=== PATIENT | female | born 1960 | race Caucasian/White ===

== ENCOUNTER 2017-12-10 11:21 | Observation (INO) | payer OTHER ==
--- NOTE | 2017-12-10 11:30 | CPEKG ---
Heart Rate: 84 RR Interval: 714 P-R Interval: 160 QRSD Interval: 76 QT Interval: 376 QTC Interval: 445 P [place]: 46 QRS [place]: 74 T Wave [place]: 59 EKG Severity - NORMAL ECG - EKG Impression: SINUS RHYTHM Electronically Signed By: Wolfgang Jones 10-Dec-2017 14:58:58
--- NOTE | 2017-12-10 11:49 | EDPHY ---
H & P Stated Complaint: CP since 4am. Time Seen by Provider: 12/10/17 11:49 - Personal History Current Tetanus Diphtheria and Acellular Pertussis (TDAP): Yes - Medical/Surgical History Hx Asthma: Yes Hx Chronic Respiratory Disease: No Hx Diabetes: No Hx Cardiac Disease: No Hx Renal Disease: No Hx Cirrhosis: No Hx Alcoholism: No Hx HIV/AIDS: No Hx Splenectomy or Spleen Trauma: No Other PMH: Asthma. Spinal stenosis. - Social History Smoking Status: Current every day smoker Constitutional: Initial Vital Signs Temperature (C) 37.1 C 12/10/17 11:24 Heart Rate 91 12/10/17 11:24 Respiratory Rate 16 12/10/17 11:24 Blood Pressure 112/72 12/10/17 11:24 O2 Sat (%) 94 12/10/17 11:24 O2 Delivery Mode Room Air Allergies/Adverse Reactions: codeine Allergy (Verified 01/31/14 16:47) Penicillins Allergy (Verified 01/31/14 16:48) Home Medications: Medication Instructions Recorded Advair 100/50 (*) 12/10/17 Medical Decision Making - Diagnostics Imaging Results: Imaging Impressions Chest X-Ray 12/10/17 12:04 Impression: Airways disease/COPD. ED Course/Re-evaluation: CHIEF COMPLAINT: Chest pain HISTORY OF PRESENT ILLNESS: This patient is a 56 year old female complaining of chest pain. Her symptoms began this morning at 4am, waking her from sleep. The discomfort is in the middle of her chest and feels like a pressure sensation, pushing on her chest. This is not sharp or stabbing, and does not radiate anywhere else. She denies any known provocation or palliation. She has never had similar symptoms in the past. Her mother had history of "heart problems", the patient is not sure what these were. She endorses shortness of breath. She endorses some paresthesias in her left hand. No nausea, vomiting, lightheadedness, weakness, or other associated symptoms. REVIEW OF SYSTEMS: A 10 point review of systems was performed and is negative with the exception of the elements mentioned in the history of present illness. PHYSICAL EXAM: HR, BP, O2 Sat, RR. Temp noted General Appearance: Alert, well hydrated, appropriate, and non-toxic appearing. Head: Atraumatic without scalp tenderness or obvious injury Eyes: Pupils equal, round, reactive to light and accommodation, EOMI, no trauma , no injection. Ears: Clear bilaterally, no perforation, normal landmarks Nose: Atraumatic, no rhinorrhea, clear. Throat: There is no erythema or exudates, no lesions, normal tonsils, mucus membranes moist. Neck: Supple, 2+ carotid upstroke, nontender, no lymphadenopathy. Respiratory: No retractions, no distress, no wheezes, and no accessory muscle use. Lungs are clear to auscultation bilaterally. Cardiovascular: Regular rate and rhythm, no murmurs, rubs, or gallops. Bilateral carotid, radial, dorsalis pedis, and posterior tibial pulses intact. Good capillary refill all extremities. Gastrointestinal: Abdomen is soft, nontender, non-distended, no masses, no rebound, no guarding, no peritoneal signs. Musculoskeletal: Normal active ROM of all extremities, atraumatic. Neurological: Alert, appropriate, and interactive. The patient has normal DTRs and non-focal cranial nerves, motor, sensory, and cerebellar exam. Skin: No rashes, good turgor, no nodules on palpation. Past medical history: Asthma, Spinal stenosis. Past surgical history: Noncontributory. Family history: Noncontributory. Social history: Nonsmoker. Live in [place]. Employed. PCP Dr. Fierro. DIAGNOSTICS/PROCEDURES/CRITICAL CARE TIME: The 12 lead EKG was interpreted by myself. See hard copy and/or "tracemaster" electronic copy for interpretation. T-wave inversion in V2. DIFFERENTIAL DIAGNOSIS: The differential diagnosis for the patient's chest pain included but was not limited to myocardial ischemia, pulmonary embolus, chest wall pain, pleural inflammation, and pulmonary infectious causes. MEDICAL DECISION MAKIN57 y/o female presents with chest pain onset this morning at 4:00am. Exam unremarkable. Stat EKG at bedside shows sinus rhythm, T-wave inversion in V2 and poor R wave progression. Plan for chest x-ray, labs including CBC, chemistries, troponin, D-dimer, BNP. Administered 325mg PO aspirin. 12:40 Troponin negative. 12:26 Reassessed patient. Her chest pain is ongoing. Plan to admit for further evaluation. Plan to administer 1" nitro paste. 13:28 Spoke with hospitalist service. Dr. Taylor accepts admission for chest pain. 12:[address] Puga, chemistry associate. She will consult the patient. - Data Points Laboratory Results: Laboratory Results 12/10/17 11:25 12/10/17 11:25 12/10/17 12/10/17 12/10/17 11:25 11:25 11:25 WBC 11.16 10^3/uL H 10^3/uL (3.80-9.50) RBC 5.31 10^6/uL 10^6/uL (4.18-5.33) Hgb 16.5 g/dL H g/dL (12.6-16.3) Hct 48.5 % H % (38.0-47.0) MCV 91.3 fL fL (81.5-99.8) MCH 31.1 pg pg (27.9-34.1) MCHC 34.0 g/dL g/dL (32.4-36.7) RDW 13.4 % % (11.5-15.2) Plt Count 265 10^3/uL 10^3/uL (150-400) MPV 10.1 fL fL (8.7-11.7) Neut % (Auto) 81.7 % H % (39.3-74.2) Lymph % (Auto) 11.4 % L % (15.0-45.0) [place] % (Auto) 5.3 % % (4.5-13.0) Eos % (Auto) 1.0 % % (0.6-7.6) Baso % (Auto) 0.3 % % (0.3-1.7) Nucleat RBC Rel Count 0.0 % % (0.0-0.2) Absolute Neuts (auto) 9.13 10^3/uL H 10^3/uL (1.70-6.50) Absolute Lymphs (auto) 1.27 10^3/uL 10^3/uL (1.00-3.00) Absolute Monos (auto) 0.59 10^3/uL 10^3/uL (0.30-0.80) Absolute Eos (auto) 0.11 10^3/uL 10^3/uL (0.03-0.40) Absolute Basos (auto) 0.03 10^3/uL 10^3/uL (0.02-0.10) Absolute Nucleated RBC 0.00 10^3/uL 10^3/uL (0-0.01) Immature Gran % 0.3 % % (0.0-1.1) Immature Gran # 0.03 10^3/uL 10^3/uL (0.00-0.10) D-Dimer 0.32 ug/mLFEU ug/mLFEU (0.00-0.50) Sodium 138 mEq/L mEq/L (135-145) Potassium 4.4 mEq/L mEq/L (3.5-5.2) Chloride 100 mEq/L mEq/L (97-110) Carbon Dioxide 22 mEq/l mEq/l (22-31) Anion Gap 16 mEq/L mEq/L (8-16) BUN 16 mg/dL mg/dL (7-23) Creatinine 0.9 mg/dL mg/dL (0.6-1.0) Estimated GFR > 60 Glucose 128 mg/dL H mg/dL (70-100) Calcium 9.7 mg/dL mg/dL (8.5-10.4) Troponin I < 0.012 ng/mL ng/mL (0.000-0.034) NT-Pro-B Natriuret Pep 87 pg/mL pg/mL (0-125) Medications Given: Discontinued Medications Aspirin (Aspirin) 324 mg PO EDNOW ONE Stop: 12/10/17 12:04 Last Admin: 12/10/17 13:00 Dose: Not Given Departure - Departure Disposition: [facility] Inpatient Acute Clinical Impression: Chest pain Qualifiers: Chest pain type: other chest pain Qualified Code(s): R07.89 - Other chest pain ; R07.8 - Other chest pain Condition: Fair Report Scribed for: Wolfgang Jones Report Scribed by: Annelise Nieto Date of Report: 12/10/17 Time of Report: 13:36
[2017-12-10] MEDS ORDERED: ASPIRIN 81 MG CHEWABLE TAB PO ONE (12:03)
[2017-12-10 12:21] LABS: PLATELET COUNT 265 10^3/uL (150-400)
[2017-12-10] MEDS ORDERED: NITROGLYCERIN 2% 1 GM PACKET TP ONE (13:26)
[2017-12-10] MEDS ORDERED: ONDANSETRON DISINTEGRATING 4 MG TAB PO PRN (14:31)
[2017-12-10] MEDS ORDERED: ONDANSETRON 4 MG/2 ML VIAL IVP PRN (14:31)
[2017-12-10] MEDS ORDERED: ACETAMINOPHEN 325 MG TAB PO PRN (14:31)
[2017-12-10] MEDS ORDERED: ALBUTEROL 3 ML DEYVIAL IH PRN (14:31)
--- NOTE | 2017-12-10 15:03 | PDGENHP ---
History and Physical - Chief Complaint chest pain - History of Present Illness 56 year old female complaining of chest pain. Her symptoms began this morning at 4am, waking her from sleep. The discomfort is in the middle of her chest and feels like a pressure sensation, pushing on her chest. This is not sharp or stabbing, and does not radiate anywhere else. It is not associated with exertion. She does not feel SOB. She does not have palpitations, she does not have leg swelling. She does not have cough. No nausea, vomiting, lightheadedness , weakness, or other associated symptoms. Troponin in the E.D. negative D-Dimer is negative EKG shows T wave inversion in V2 She did not improve with Nitroglycerin cardiology has been consulted Past medical history: Asthma, Spinal stenosis. Past surgical history: Noncontributory. Family history: Noncontributory. Social history: Nonsmoker. Live in [place]. Employed. PCP Dr. Fierro. History Information - Allergies/Home Medication List Allergies/Adverse Reactions: codeine Allergy (Verified 01/31/14 16:47) Penicillins Allergy (Verified 01/31/14 16:48) Home Medications: Fluticasone/Salmeter 100/50Mcg [Advair 100/50 (*)] 1 puffs IH HS 12/10/17 [Last Taken 12/09/17] I have personally reviewed and updated: medical history, social history - Social History Smoking Status: Current every day smoker Review of Systems Review of Systems: ROS: 10pt was reviewed & negative except for what was stated in HPI & below Physical Exam Physical Exam: Temp Pulse Resp BP Pulse Ox 37.2 C 80 18 109/74 94 12/10/17 13:57 12/10/17 13:57 12/10/17 13:57 12/10/17 13:57 12/10/17 13:57 Constitutional: no apparent distress, appears nourished Eyes: PERRL, EOMI Ears, Nose, Mouth, Throat: moist mucous membranes, hearing normal Cardiovascular: regular rate and rhythym, No edema Respiratory: no respiratory distress, no rales or rhonchi, clear to auscultation Gastrointestinal: normoactive bowel sounds, soft, non-tender abdomen Skin: warm Musculoskeletal: full muscle strength Neurologic: AAOx3 Psychiatric: interacting appropriately, not anxious, not encephalopathic Lymph, Heme, Immunologic: No petechiae Lab Data & Imaging Review 12/10/17 11:25 12/10/17 11:25 WBC 11.16 10^3/uL (3.80-9.50) H 12/10/17 11:25 RBC 5.31 10^6/uL (4.18-5.33) 12/10/17 11:25 Hgb 16.5 g/dL (12.6-16.3) H 12/10/17 11:25 Hct 48.5 % (38.0-47.0) H 12/10/17 11:25 MCV 91.3 fL (81.5-99.8) 12/10/17 11:25 MCH 31.1 pg (27.9-34.1) 12/10/17 11:25 MCHC 34.0 g/dL (32.4-36.7) 12/10/17 11:25 RDW 13.4 % (11.5-15.2) 12/10/17 11:25 Plt Count 265 10^3/uL (150-400) 12/10/17 11:25 MPV 10.1 fL (8.7-11.7) 12/10/17 11:25 Neut % (Auto) 81.7 % (39.3-74.2) H 12/10/17 11:25 Lymph % (Auto) 11.4 % (15.0-45.0) L 12/10/17 11:25 [place] % (Auto) 5.3 % (4.5-13.0) 12/10/17 11:25 Eos % (Auto) 1.0 % (0.6-7.6) 12/10/17 11:25 Baso % (Auto) 0.3 % (0.3-1.7) 12/10/17 11:25 Nucleat RBC Rel Count 0.0 % (0.0-0.2) 12/10/17 11:25 Absolute Neuts (auto) 9.13 10^3/uL (1.70-6.50) H 12/10/17 11:25 Absolute Lymphs (auto) 1.27 10^3/uL (1.00-3.00) 12/10/17 11:25 Absolute Monos (auto) 0.59 10^3/uL (0.30-0.80) 12/10/17 11:25 Absolute Eos (auto) 0.11 10^3/uL (0.03-0.40) 12/10/17 11:25 Absolute Basos (auto) 0.03 10^3/uL (0.02-0.10) 12/10/17 11:25 Absolute Nucleated RBC 0.00 10^3/uL (0-0.01) 12/10/17 11:25 Immature Gran % 0.3 % (0.0-1.1) 12/10/17 11:25 Immature Gran # 0.03 10^3/uL (0.00-0.10) 12/10/17 11:25 D-Dimer 0.32 ug/mLFEU (0.00-0.50) 12/10/17 11:25 Sodium 138 mEq/L (135-145) 12/10/17 11:25 Potassium 4.4 mEq/L (3.5-5.2) 12/10/17 11:25 Chloride 100 mEq/L (97-110) 12/10/17 11:25 Carbon Dioxide 22 mEq/l (22-31) 12/10/17 11:25 Anion Gap 16 mEq/L (8-16) 12/10/17 11:25 BUN 16 mg/dL (7-23) 12/10/17 11:25 Creatinine 0.9 mg/dL (0.6-1.0) 12/10/17 11:25 Estimated GFR > 60 12/10/17 11:25 Glucose 128 mg/dL (70-100) H 12/10/17 11:25 Calcium 9.7 mg/dL (8.5-10.4) 12/10/17 11:25 Troponin I < 0.012 ng/mL (0.000-0.034) 12/10/17 11:25 NT-Pro-B Natriuret Pep 87 pg/mL (0-125) 12/10/17 11:25 Assessment & Plan Assessment: #Chest pain #Abnormal EKG: Twave inversion in V2 #Hx of asthma with no Exacerbation Plan: -This does not appear to be ACS -?GI source contributing -Will get TTE now. Cards consulted, await further reccs pending TTE -Serial Trop -Trial of IV PPI -check for risk factors -If r/o consider stress test tomorrow -SCD's
[2017-12-10] MEDS: FAMOTIDINE 20 MG/NACL 50 ML IV SCH ×2 (15:21→21:00)
--- NOTE | 2017-12-10 15:25 | ECHO ---
[email or web address] [address] [address] Main: [phone] Fax: Transthoracic Echocardiogram Name: ELENITA GILBERT MR#: [id number] Study Date: 12/10/2017 Study Time: 02:53 PM Date of : 1960 Age: 57 year(s) Height: 167.6 cm (66 in.) Weight: 70.31 kg (155 lb.) BSA: 1.79 m2 Gender: Female Examination: Echo Indication: Chest Pain Image Quality: Contrast: Requested by: Bill Taylor BP: 109 mmHg/74 mmHg Heart Rate: Rhythm: Indication: Chest Pain Procedure Staff Pesticide Applicator: Hakan Peoples RDCS Reading Physician: Jarret Ritter Requesting Provider: Conclusions: Normal global systolic LV function. EF is 74 %. There is no mitral valve regurgitation. The aortic valve is tri-leaflet and functions normally. Measurements: Chambers Valvular Assessment AV/MV Valvular Assessment TV/PV Normal Normal Normal Name Value Range Name Value Range Name Value Range Ao Christy (MM): 3.3 cm (2.2 cm-3.7 AV Vmax: 1.15 m/s (1 m/s-1.7 PV Vmax: 1.02 m/s (0.6 m/s-0.9 cm) m/s) m/s) IVSd (2D): 0.7 cm (0.6 cm-1.1 AV maxP mmHg ( - ) PV PGmax: 4 mmHg ( - ) cm) LVOT Vmax: 0.95 m/s (0.7 m/s-1.1 LVDd (2D): 2.9 cm (3.9 cm-5.3 m/s) cm) MV E Vmax: 0.68 m/s ( - ) LVDs (2D): 1.7 cm (2.1 cm-4 MV A Vmax: 0.81 m/s ( - ) cm) MV E/A: 0.84 ( - ) LVPWd (2D): 0.9 cm ( - ) LVEF (2D): 74 (>=54 %) Continued Measurements: Chambers Valvular Assessment AV/MV Name Value Name Value LADs Lon.3 cm MV E' Septal: 0.06 m/s LA Area: 12.8 cm2 MV E/E' Septal: 11.10 MV E/E' Lateral: 12.40 Patient: ELENITA GILBERT Study Date: 12/10/2017 Page 1 of 2 02:53 PM Findings: Left Ventricle: Normal size left ventricle. No LV hypertrophy. Normal global systolic LV function. EF is 74 %. No regional wall motion abnormality. Diastolic dysfunction is present. . Right Ventricle: Normal size right ventricle. Left Atrium: The left atrium is normal in size. Right Atrium: The right atrium is normal in size. Mitral Valve: The mitral valve is normal in appearance and function. There is no mitral valve regurgitation. Aortic Valve: The aortic valve is normal in appearance and function. The aortic valve is tri-leaflet and functions normally. There is no aortic valve regurgitation. Tricuspid Valve: The tricuspid valve appears normal. Pulmonic Valve: The pulmonic valve is normal in appearance and function. Aorta: The aorta is normal. Pericardium: No pericardial effusion. No echocardiographic evidence of hemodynamic compromise. There is pericardial fat. (No Signature Object) Patient: ELENITA GILBERT Study Date: 12/10/2017 Page 2 of 2 02:53 PM [id number]
--- NOTE | 2017-12-10 15:35 | GCON ---
[f rep st] CONSULTATION CARDIOLOGY CONSULTATION CHIEF COMPLAINT: Chest/epigastric pain for 12 hours. HISTORY OF PRESENT ILLNESS: This is a 57-year-old female with history of questionable COPD who prese nts to [facility] with complaints of epigastric/chest pain, which woke her up at approx imately 4 a.m. this morning. The patient indicates in the past she has had occasional episodes like this; however, this is the first time that the pain was consistent and not going away. She indicates the pain as being substernal/epigastric in nature, almost burning in nature. There was no radiation . She indicates no current change in medications or dietary issues. She is a long-time smoker. Natalia sousa is unclear currently of any family history of heart problems, though she has been told that ther e may be cardiac issues in the family. She indicates having some shortness of breath; however, this is not a new finding for her given her smoking according to her history. Currently, blood pressure, heart rate stable. ECG shows normal sinus rhythm with an isolated T-wave inversions in V2. Troponins are normal. D-dimer is normal as well. PAST MEDICAL HISTORY: Significant for questionable COPD. HOME MEDICATIONS: Consist of an inhaler. PAST SURGICAL HISTORY: Noncontributory. FAMILY HISTORY: Questionable cardiac issues in the maternal side. REVIEW OF SYSTEMS: Patient currently denies any vision changes. No headache. No palpitations. She does indicate having epigastric discomfort currently, which is not positional in nature. She does h ave mild shortness of breath with moderate exertion. No abdominal pain. No lower extremity pain. N o edema. No neurologic deficits. PHYSICAL EXAMINATION: VITAL SIGNS: Patient is currently afebrile. Blood pressure currently 110/70 with a heart rate of 72, respirations 12, sat 95% on room air. HEENT: Pupils equal, round, and reac tive to light and accommodation. Extraocular muscles intact. CARDIOVASCULAR: Regular rate and rhyt hm S1, S2. There are no murmurs auscultated. LUNGS: Slightly diminished breath sounds with wheezes at the bases. ABDOMEN: Soft, tender. No guarding. EXTREMITIES: No clubbing, no cyanosis, no chad ma. NEUROLOGIC: Alert x oriented x3. LABORATORY DATA: Currently shows white cell count 11,000, hemoglobin 16.5, platelet count 265. D-di vipul 0.32. Glucose 128. Troponin negative x1 set. BNP 87. ASSESSMENT/PLAN: Chest/epigastric pain. At this time, the patient's troponins are negative and ECG shows no acute dynamic changes; however, the patient is still having ongoing epigastric discomfort. We will administer Pepcid 20 mg intravenous right now and see if there is an underlying gastrointesti nal etiology for symptoms, i.e. gastroesophageal reflux disease. The patient had nitroglycerin paste placed earlier this morning; however, she indicated that this has not affected her underlying discom fort level. We will reassess after the patient has had her Pepcid intravenous administered. We will also check an echocardiogram to evaluate her underlying valvular structure and function. If the pat ient's discomfort is not relieved by the Pepcid, continuing with the cardiac and/or pulmonary workup will be pursued with most likely a stress test in the a.m. as long as the patient is not having activ e chest pain. /[id number]/MODL
[2017-12-10] MEDS ORDERED: KETOROLAC 30 MG/1 ML SDV IVP ONE (16:05)
[2017-12-10] MEDS ORDERED: FLUTICASONE/SALMETER 100/50MCG DISKUS IH SCH (21:00)
[2017-12-10] MEDS ORDERED: KETOROLAC 15 MG/1 ML SDV ONE (22:26)
[2017-12-10] MEDS ORDERED: KETOROLAC 15 MG/1 ML SDV IVP PRN (22:28)
[2017-12-10] MEDS ORDERED: NICOTINE POLACRILEX 2 MG GUM B PRN (22:30)
[2017-12-11 04:36] LABS: PLATELET COUNT 198 10^3/uL (150-400)
--- NOTE | 2017-12-11 07:08 | PDCARPN ---
Cardiology Progress Note Chief Complaint: CP Assessment/Plan: Assessment: CP Plan: 12/11/17 07:06 Trop - x 3 sets Echo NL pain resolved with toradol--suspect pleurisy vs pericarditis Start indocin today--continue for 2 weeks OK to d/c home f/u as outpatient Subjective: no complaints Reviewed/Discussed With: multidisciplinary team Time Spent With Patient: 25 min Objective: Vital Signs (8 Hrs) Temp Pulse Resp BP Pulse Ox 12/11/17 04:30 84 L 12/11/17 03:54 36.8 C 86 18 97/57 L 94 12/10/17 23:24 36.9 C 77 18 99/56 L 92 Intake/Output (24 Hrs) 12/10/17 12/11/17 12/12/17 05:59 05:59 05:59 Intake Total 400 Balance 400 Intake: Oral (ml) 400 Other: Weight 78.8 kg Intake Quantity Yes Sufficient Number of Voids Toilet 3 Result Diagrams: 12/11/17 03:32 12/11/17 03:32 Cardiac Labs: Cardiac Lab Results (72 Hrs) 12/11/17 12/10/17 03:32 19:27 Troponin I < 0.012 < 0.012 - Physical Exam Constitutional: healthy appearing Eyes: PERRL Ears, Nose, Mouth, Throat: moist mucous membranes Cardiovascular: regular rate and rhythm, no murmurs Peripheral Pulses: 1+: femoral (R), femoral (L) Respiratory: clear to auscultate bilat Gastrointestinal: normoactive bowel sounds Genitourinary: no suprapubic tenderness Skin: no rashes Musculoskeletal: no muscular tenderness Neurologic: AAOx3 Psychiatric: cooperative Lymph, Heme, Immunologic: no lymphadenopathy ICD10 Worksheet Patient Problems: Problems Problem Status Onset Chest pain Acute
[2017-12-11 07:28] VITALS: O2SAT 90
[2017-12-11] MEDS ORDERED: INDOMETHACIN 25 MG CAP PO SCH (08:00)
--- NOTE | 2017-12-11 08:52 | CPEKG ---
Heart Rate: 72 RR Interval: 833 P-R Interval: 160 QRSD Interval: 82 QT Interval: 396 QTC Interval: 434 P El[place]: 70 QRS [place]: 76 T Wave [place]: 67 EKG Severity - BORDERLINE ECG - EKG Impression: SINUS RHYTHM EKG Impression: BORDERLINE T ABNORMALITIES, ANT-LAT LEADS Electronically Signed By: Jam Laws 11-Dec-2017 08:54:23
[2017-12-11] MEDS: FAMOTIDINE 20 MG/NACL 50 ML IV SCH (09:08)
--- NOTE | 2017-12-11 10:37 | ASMTCASEMG ---
Living Arrangements What is your living Answers: With Child(reji) arrangement? Who do you live with? Type Of Residence What kind of residence do Answers: House you live in? Discharge Plan Comments Coordination Status Comments Notes: Pt is a 57 y/o female admitted for chest pain. No therapies ordered at this time. Pt will most likely d/c independent when medically stable. CM available for changes. Plan: Independent Date Signed: 12/11/2017 10:36 AM Electronically Signed By:BERT Chang
[2017-12-11 11:48] VITALS: BP 117/74; PULSE 63; RESP 16; TEMP 98.8
--- NOTE | 2017-12-11 15:21 | PDDCSUM ---
Discharge Summary Discharge Summary: 57 yo female admitted with chest pain. she had negative cardiac w/u cards was consulted and has cleared she likely has pericarditis and she was started on indomethacin 25mg BID x 2 weeks. She will f/u with [facility] She is no longer having chest pain. TTE was normal Discharge diagnosis #Chest pain #Abnormal EKG: Twave inversion in V2 #Hx of asthma with no Exacerbation Exam: VSS NAD AAOX3 RRR CTA B S/NT/ND NO LE EDEMA NO FOCAL WEAKNESS MEDS: SEE MED REC. NEW MED: INDOMETHACIN F/U: PER ABOVE TOTAL TIME SPENT ON D/C IS 35 MINS
== END 2017-12-11 14:05 | disposition home or self-care (01) ==
LOC: EDUNIT# → F2W 14:40
PROVIDERS: ADMIT Family Medicine; ATTEND Family Medicine
DX: R07.9 Chest pain, unspecified (principal); R94.31 Abnormal electrocardiogram [ECG] [EKG]; J45.909 Unspecified asthma, uncomplicated; M48.00 Spinal stenosis, site unspecified; Z88.0 Allergy status to penicillin
CPT/HCPCS: 71046; 93005; 93306; G0378; J1885

== ENCOUNTER → 2018-02-24 | Outpatient (CLI) | payer OTHER | LOC: FIMAGING 15:43 | PROVIDERS: ATTEND Internal Medicine | DX: Z12.31 Encounter for screening mammogram for malignant neoplasm of breast (principal); Z80.3 Family history of malignant neoplasm of breast ==

== ENCOUNTER 2018-09-22 05:35 | Day surgery (SDC) | payer OTHER ==
[2018-09-22] MEDS ORDERED: ACETAMINOPHEN 500 MG TAB PO ONE (06:07)
[2018-09-22] MEDS ORDERED: LR 1,000 ML IV ONE (06:10)
[2018-09-22] MEDS ORDERED: LIDOCAINE 1% 2 ML INJ ID PRN (06:10)
[2018-09-22] MEDS ORDERED: BUPIVACAINE/EPI 0.25% 30 ML SDV ONE (06:47)
[2018-09-22] MEDS ORDERED: CHLORHEXIDINE GLUC HIBICLENS 118 ML BTL TP ONE (06:47)
[2018-09-22] MEDS ORDERED: SURGIFLO MATRIX KIT WITH THROMBIN 8 ML TP ONE (06:47)
[2018-09-22] MEDS ORDERED: THROMBIN (BOVINE) 5,000 UNIT VIAL TP ONE (06:48)
[2018-09-22] MEDS ORDERED: GENTAMICIN SULFATE 80 MG/2 ML VIAL ONE (06:48)
--- NOTE | 2018-09-22 06:53 | PDHPUP ---
History & Physical Update H&P update statement: This history and physical update is based on an assessment of the patient which was completed after admission or registration (within 24 hours), but prior to the surgery/procedure. H&P update: H&P reviewed & patient examined, no change in patient's condition since H&P completed
[2018-09-22] MEDS ORDERED: MIDAZOLAM 2 MG/2 ML VIAL IVP ONE (07:05)
--- NOTE | 2018-09-22 07:07 | PDANEPAE ---
ANE Past Medical History - Cardiovascular History Hx Hypertension: No Hx Arrhythmias: No Hx Chest Pain: No Hx Coronary Artery / Peripheral Vascular Disease: No Hx CHF / Valvular Disease: No Hx Palpitations: No Cardiovascular History Comment: TTE 11/2017: EF 70%, no valvular disorders - Pulmonary History Hx COPD: Yes Hx Asthma/Reactive Airway Disease: Yes Hx Recent Upper Respiratory Infection: No Hx Oxygen in Use at Home: No Hx Sleep Apnea: No Sleep Apnea Screening Result - Last Documented: Negative Pulmonary History Comment: Current 1 ppd smoker. Baseline O2 sat 89% - Neurologic History Hx Cerebrovascular Accident: No Hx Seizures: No Hx Dementia: No Neurologic History Comment: nerve pain from low back, left sided - Endocrine History Hx Diabetes: No - Renal History Hx Renal Disorders: No - Liver History Hx Hepatic Disorders: No - Neurological & Psychiatric Hx Hx Neurological and Psychiatric Disorders: No - Cancer History Hx Cancer: No - Congenital Disorder History Hx Congenital Disorders: No - GI History Hx Gastrointestinal Disorders: No - Other Health History Other Health History: wears glasses/contacts. mild hearing loss, no hearing aids - Chronic Pain History Chronic Pain: Yes (low back) - Surgical History Prior Surgeries: none ANE Review of Systems Review of Systems: - Exercise capacity Exercise capacity: >=4 METS METS (RN): 4 METS ANE Patient History - Allergies Allergies/Adverse Reactions: codeine Allergy (Verified 09/17/18 16:54) unsure of reaction, was from as a child Penicillins Allergy (Verified 09/17/18 16:54) unsure of reaction, was from as a child - Home Medications Home Medications: Fluticasone/Salmeter 100/50Mcg [Advair 100/50 (*)] HS 12/10/17 [Last Taken 09/22 06:00] - NPO status NPO Since - Liquids (Date): 09/21/18 NPO Since - Liquids (Time): 19:00 NPO Since - Solids (Date): 09/21/18 NPO Since - Solids (Time): 19:00 - Smoking Hx Smoking Status: Current every day smoker - Family Anes Hx Family Hx Anesthesia Complications: none ANE Labs/Vital Signs - Vital Signs Vital Signs: reviewed preoperatively; see RN documention for details Blood Pressure: 108/71 Heart Rate: 79 Respiratory Rate: 18 O2 Sat (%): 88 Height: 165.1 cm Weight: 72.575 kg ANE Physical Exam - Airway Neck exam: FROM Mallampati Score: Class 2 Mouth exam: normal dental/mouth exam - Pulmonary Pulmonary: clear to auscultation - Cardiovascular Cardiovascular: regular rate and rhythym - ASA Status ASA Status: II ANE Anesthesia Plan Anesthesia Plan: general endotracheal anesthesia
[2018-09-22] MEDS ORDERED: REMIFENTANIL HCL 1 MG VIAL ONE ×2 (07:10→08:37)
[2018-09-22] MEDS ORDERED: PROPOFOL 200 MG/20 ML VIAL ONE (07:11)
[2018-09-22] MEDS ORDERED: fentaNYL 100 MCG/2 ML INJ ONE ×2 (07:11→10:11)
[2018-09-22] MEDS ORDERED: PROPOFOL/EMULSION 500 MG/50 ML BOTTLE IV ONE ×2 (07:11→08:37)
[2018-09-22] MEDS ORDERED: SUCCINYLCHOLINE CHLORIDE 200 MG/10 ML SYR IVP ONE (07:14)
[2018-09-22] MEDS ORDERED: PETROLAT,WHT/MIN OIL/SOD CHL 3.5 GM OPHT.OINT ONE (07:19)
[2018-09-22] MEDS ORDERED: LIDOCAINE 2% 100 MG/5 ML SYR ONE (07:20)
[2018-09-22] MEDS ORDERED: ceFAZolin 2 GM/DEXTROSE 100 ML IV ONE (07:30)
[2018-09-22] MEDS ORDERED: DEXAMETHASONE 4 MG/ML VIAL ONE ×3 (07:55)
[2018-09-22] MEDS ORDERED: PHENYLEPHRINE 10 MG/ML SDV ONE (08:03)
[2018-09-22] MEDS ORDERED: ONDANSETRON 4 MG/2 ML VIAL ONE (08:52)
[2018-09-22] MEDS ORDERED: ALBUTEROL HFA ANES ONLY 200 PUFFS/8.5 GM MDI IH ONE (08:52)
[2018-09-22] MEDS ORDERED: ALBUTEROL 3 ML DEYVIAL IH PRN (08:57)
[2018-09-22] MEDS ORDERED: LR 500 ML IV PRN (08:57)
[2018-09-22] MEDS ORDERED: LABETALOL HCL 20 MG/4 ML INJ IVP PRN (08:57)
[2018-09-22] MEDS ORDERED: ONDANSETRON 4 MG/2 ML VIAL IVP PRN (08:57)
[2018-09-22] MEDS ORDERED: fentaNYL 100 MCG/2 ML INJ IVP PRN (08:57)
[2018-09-22] MEDS ORDERED: MEPERIDINE 25 MG/0.5 ML AMP IVP PRN (08:57)
[2018-09-22] MEDS ORDERED: PROMETHAZINE HCL 25 MG/ML INJ IVP PRN (08:57)
[2018-09-22] MEDS ORDERED: DIAZEPAM 5 MG/ML 1 ML SYR IVP PRN (08:57)
[2018-09-22] MEDS ORDERED: DEXAMETHASONE 4 MG/ML VIAL IVP PRN (08:57)
[2018-09-22] MEDS ORDERED: METOCLOPRAMIDE 10 MG/2 ML VIAL IVP PRN (08:57)
[2018-09-22] MEDS ORDERED: HYDROmorphONE/DILAUDID 2 MG/ML INJ IVP PRN (08:57)
[2018-09-22] MEDS ORDERED: PHENYLEPHRINE HCL 100 MCG/ML SYR IVP PRN (08:57)
[2018-09-22] MEDS ORDERED: NALOXONE HCL 0.4 MG/ML INJ IVP PRN ×2 (08:57→08:58)
[2018-09-22] MEDS ORDERED: oxyCODONE IR 5 MG TAB PO PRN (08:58)
--- NOTE | 2018-09-22 09:24 | POSTOPPROG ---
Post Op Note Date of Operation: 09/22/18 Surgeon: Celina Zaldivar Jewel Inspector: Oma Miramontes PA-C Anesthesia: GET(General Endotracheal) Pre-op Diagnosis: Lumbar radiculopathy Post-op Diagnosis: Lumbar radiculopathy Procedure: Left L5/S1 foraminotomy Inf/Abcess present in the surg proc area at time of surgery?: No Depth: Deep Incisional (Fascial) EBL: Minimal Plan Plan: 58 yo female s/p left L5/S1 foraminotomy - neuro checks - pain control - advance diet as tolerated - dc home Exam Awake. Alert Following commands,GRACE Incision with dressing c/d/i
--- NOTE | 2018-09-22 09:28 | GOP ---
DATE OF OPERATION: 09/22/2018 SURGEON: Celina Zaldivar DO [employer]ACHINE OPERATOR: Sushila Miramontes PA-C PREOPERATIVE DIAGNOSIS: 1. L5-S1 foraminal stenosis. 2. Radiculopathy. POSTOPERATIVE DIAGNOSIS: 1. L5-S1 foraminal stenosis. 2. Radiculopathy. PROCEDURE PERFORMED: L5-S1 foraminotomy. FINDINGS: SPECIMENS: None. ESTIMATED BLOOD LOSS: 30 mL. INDICATIONS: This is a 58-year-old female with a radiculopathy that corresponds to a left L5-S1 fora jennifer stenosis. She elected to move forward with foraminotomy. DESCRIPTION OF PROCEDURE: She was identified consented. Sites were marked. Brought to the operatin g room. Anesthetized under general endotracheal tube anesthesia. Rolled onto the OR bed with a Wils on frame. All pressure points were appropriately padded. Skin was cleansed with Hibiclens and then an 18-gauge spinal needle was introduced under x-ray to emmanuel the incision site. Incision site was ma rked. She was prepped and draped in the usual sterile fashion. Incision was anesthetized with 0.5% Marcaine with epinephrine. Incision was made with a 10 blade. Hemostasis was obtained with Bovie and bipolar cautery dissecting down onto the laminae of L5 and S1. Measured and placed a Shadow-Line retractor. Placed a [place] 4. Took an x-ray and verified we were in appropriate position. Brought in the microscope. Using t he high-speed drill, created a laminectomy of essentially a full laminectomy of L5, so that we could fully decompress the entire nerve root top to bottom and out the foramen. We entered the ligamentum flavum with a ball-tip probe and then used 2 and 3 Kerrisons to extend this down to fully cover all t he way from the inferior portion of the L4 foramen down to the inferior portion of the L5-S1 foramen and placed the Kerrison out the foramen creating a foraminotomy. We could easily visualize the top a nd the bottom of the nerve root and easily passed the ball-tip probe fully out the foramen when we we re completed. Meticulous hemostasis was obtained with bipolar and Floseal. We then copiously irrigated with gentamicin infused saline. Removed the ShadowLine retractor after h aving taken verification x-rays that we were at the appropriate level. Closed the fascia with 2-0 Vi cryl pop-offs, subcutaneous layer with 2-0 Vicryl pop-offs, cutaneous layer with 3-0 Vicryl pop-offs. The skin was closed with 4-0 running Monocryl, Steri-Strips. Wound was dressed with gauze and a Te gaderm. The patient tolerated procedure well. Neuromonitoring remained stable. Some irritation as we were performing the foraminotomy. This was calm immediately after, and final neuromonitoring was stable. FLUIDS: 1 L crystalloid. URINE OUTPUT: None. DRAINS: None. COMPLICATIONS: None. /[id number]/MODL
--- NOTE | 2018-09-22 09:42 | POSTANESTH ---
Post Anesthetic Evaluation Cardiovascular Status: Normal, Stable Respiratory Status: Normal, Stable Level of Consciousness/Mental Status: Other, See Comment (Confused) Pain Control: Adequate, Prn Tx Ordered Nausea/Vomiting Control: Adequate, Prn Tx Ordered Complications Possibly Related to Anesthesia: None Noted
[2018-09-22 11:56] VITALS: BP 114/70
== END 2018-09-22 11:42 | disposition home or self-care (01) ==
LOC: FSGY 05:35
PROVIDERS: ATTEND Neurological Surgery
PROC: 00NY0ZZ Release Lumbar Spinal Cord, Open Approach (ICD-10-PCS; principal; 2018-09-22 07:15)
PROC: BR19YZZ Fluoroscopy of Lumbar Spine using Other Contrast (ICD-10-PCS; principal; 2018-09-22 07:15)
PROC: 4A10X4G Monitoring of Central Nervous Electrical Activity, Intraoperative, External Approach (ICD-10-PCS; principal; 2018-09-22 07:15)
DX: M48.07 Spinal stenosis, lumbosacral region (principal); M54.17 Radiculopathy, lumbosacral region; M51.27 Other intervertebral disc displacement, lumbosacral region; F17.210 Nicotine dependence, cigarettes, uncomplicated; Z88.0 Allergy status to penicillin
CPT/HCPCS: J0330; J0690; J1100; J1580; J2001; J2250; J2370; J2405; J2704; J3010